=== PATIENT | female | born 1935 | race Caucasian/White ===

== ENCOUNTER → 2016-09-07 | Outpatient (CLI) | payer MEDICARE ==
[~2016-09-07] MED LIST: CIPR500T2 PO; LOSA50TA PO; METO50TA PO
[2016-09-07 13:14] LABS: BACTERIA, URINE OCC /hpf; BLOOD, URINE TRACE (NEG); COMMENT (UR) CULTURE INDICATED; CULTURE IF INDICATED CULTURE INDICATED; GLUCOSE,URINE NEG (NEG); HYALINE CAST, URINE 7 /lpf (RARE); KETONE, URINE NEG (NEG); NITRITE,URINE NEG (NEG); SQUAMOUS EPITHELIAL CELL URINE 7 /hpf (0-5); URINE COLOR YELLOW (YELLW/STRAW)
[2016-09-07 13:21] LABS: ANION GAP 10 MEQ/L (5-15); AST (GOT) 15 U/L (15-37); BICARBONATE 20.3 MEQ/L (21.0-32.0); BLOOD UREA NITROGEN 18 MG/DL (7-18); CHLORIDE 101 MEQ/L (98-107); GLOMERULAR FILTRATION RATE 32 ML/MIN (>89); GLUCOSE,FASTING 81 MG/DL (74-99); POTASSIUM 4.2 MEQ/L (3.5-5.1); SODIUM (NA) 131 MEQ/L (136-145)
[2016-09-07 13:23] LABS: ALKALINE PHOSPHATASE 72 U/L (45-117); ALT (GPT) 18 U/L (10-53); TOTAL BILIRUBIN ADULT 0.2 MG/DL (0.2-1.0)
[2016-09-07 13:30] LABS: AUTOMATED NEUTROPHIL # 4.6 TH/MM3 (1.8-7.7); BASOPHIL % 0.4 % (0.0-2.0); EOSINOPHIL # 0.1 TH/MM3 (0-0.4); EOSINOPHIL % 1.7 % (0.0-4.0); HEMATOCRIT 29.8 % (35.0-46.0); HEMO FLAGS DIFF FINAL; LYMPH % 20.8 % (9.0-44.0); LYMPHOCYTE # 1.4 TH/MM3 (1.0-4.8); MEAN CELL VOLUME 89.7 FL (80.0-100.0); MEAN CORPUSCULAR HEMOGLOBIN 30.7 PG (27.0-34.0); MEAN CORPUSCULAR HGB CONC 34.3 % (32.0-36.0); MONO % 8.6 % (0.0-8.0); NEUT % 68.5 % (16.0-70.0); PLATELET COUNT 400 TH/MM3 (150-450); RED BLOOD COUNT 3.32 MIL/MM3 (4.00-5.30); WHITE BLOOD COUNT 6.7 TH/MM3 (4.0-11.0)
--- NOTE | 2016-09-07 18:15 | EKG ---
Date Performed: 09/07/2016 Time Performed: 12:16:10 PTAGE: 81 years EKG: SINUS BRADYCARDIA First degree AV block BORDERLINE ECG NO PREVIOUS TRACING DOCTOR: Maxx Zafar Interpretating Date/Time 09/07/2016 18:14:31
== END ==
LOC: CPRE 11:56
PROVIDERS: ATTEND Obstetrics & Gynecology Gynecology
DX: Z01.810 Encounter for preprocedural cardiovascular examination (principal); Z01.812 Encounter for preprocedural laboratory examination; N81.10 Cystocele, unspecified; R94.31 Abnormal electrocardiogram [ECG] [EKG]
CPT/HCPCS: 36415; 80053; 81001; 85025; 87086; 93005

== ENCOUNTER → 2016-09-13 | Day surgery (SDC) | payer MEDICARE ==
--- NOTE | 2016-09-07 12:34 | MH ---
cc: SID RUBIO MD DATE OF ADMISSION: 09/13/2016 DATE OF 1935 REASON FOR ADMISSION For anterior and posterior repair. ADMITTING DIAGNOSES Pelvic prolapse. Urinary retention. HISTORY OF PRESENT ILLNESS The patient is an 81-year-old white female, 5, para 4, status post total abdominal hysterectomy 50 years ago who has issues with pelvic organ prolapse and urinary retention. She has tried a pessary with limited result. She wants to proceed with surgical repair. PAST MEDICAL HISTORY The patient's medical history is notable for hypertension. Negative for heart, lung, liver disease, diabetes or stroke. MEDICATIONS 1. Losartan 50 mg daily. 2. Metoprolol 50 mg daily. ALLERGIES BACTRIM. CODEINE. DEMEROL. MORPHINE. PENICILLIN. SULFA. OB HISTORY Four vaginal deliveries. [employer] HISTORY Hysterectomy for benign condition. Also SURGICAL HISTORY Appendectomy. Cholecystectomy. FAMILY HISTORY Noncontributory. SOCIAL HISTORY Has good social support. No alcohol, tobacco or drugs. REVIEW OF SYSTEMS As above. No chest pain, orthopnea, PND. No nausea, vomiting or chills. No vaginal bleeding or discharge. Her major issues are pelvic pressure and urinary retention. PHYSICAL EXAMINATION VITAL SIGNS: On exam she is afebrile. Vital signs are stable. Blood pressure is 120/70. Height 5 feet, weight is 130, BMI is 25.4. GENERAL: The patient is alert and oriented, in no acute distress. No sign of cognitive dysfunction or depression. HEENT: Within normal limits. NECK: Supple. No JVD. CHEST: Clear. HEART: Regular rate and rhythm. ABDOMEN: Soft, nontender. No hepatosplenomegaly. No CVA tenderness. PELVIC EXAM: Will be detailed under anesthesia in the office we note Aa is +1, Point C is -6, Ap is 0. Genital hiatus is 3. Perineal body is 4. Total vaginal length is 10. Postvoid residual was 350 cc. Levator muscle strength is decreased at 2/5. Further exam under anesthesia. EXTREMITIES: Normal. SKIN: Without rashes. NEURO EXAM: Nonfocal. No DVT signs. ASSESSMENT Patient with anterior and posterior compartment defect with urinary retention. The patient and I have discussed the options of management and treatment. She has already failed conservative measures and understands the risks, benefits and alternatives of the planned procedure. She understands the issues of possible failure of repair, failure to resolve retention issues with dyspareunia, de valarie incontinence, damage to surrounding organs, bleeding and infection. She has made informed choice to proceed. PLAN At this point we anticipate outpatient procedure. We will use DVT prophylaxis with sequential compression device and antibiotic prophylaxis with Cleocin 900 mg IV and Flagyl 500 mg IV in light of her allergies. MD MINDI Downs/JOSS /11:37 AM /12:03 PM
[~2016-09-13] VITALS: Ht 152.4 cm; Wt 58.4 kg
[~2016-09-13] MED LIST changes: +CHLORHEXIDINE GLUCONATE 2 % 1 PACK (2 CLOTHS) TOPICAL PRN; -CIPR500T2 PO; +CLINDAMYCIN INJ 900 MG in SODIUM CHLORIDE 0.9% INJ 100 ML IV SCH; +DO NOT ADM ANY ANTICOAGULANT DRUGS PRN; +FLUORESCEIN SOD 10% SOLN 500 MG/5 ML AMP IV ONE; +INSULIN HUMAN REGULAR 1,000 UNITS/10 ML VIAL SQ PRN; +KETOROLAC TROMETHAMINE 30 MG/ML (IVP) VIAL IV PUSH PRN; +LACTATED RINGER'S 1000 ML IV PRN; +LIDOCAINE 1%/EPINEPHrine 1:100,000 SOLN 30 ML VIAL INFIL ONE; +METHYLENE BLUE 10 MG/ML VIAL OTHER ONE; +METOPROLOL TARTRATE 25 MG TAB PO PRN; +METRONIDAZOLE 500 MG/100 ML ISONTONIC SOLN IV SCH; +ONDANSETRON HCL 4 MG/2 ML VIAL IV PUSH ONE; +ONDANSETRON HCL 4 MG/2 ML VIAL IV PUSH PRN; +POVIDONE IODINE 5% (ANTISEPSIS KIT) 4 APPLICATIONS EACH NARE PRN; +PROPOFOL 200 MG/20 ML AMP IV ONE; +SODIUM CHLORID 0.9% 500 ML IV PRN; +SODIUM CHLORIDE 0.9% INJ 100 ML ONE; +traMADol HCL 50 MG TAB PO PRN
[2016-09-13 07:05] VITALS: BP 141/73; PULSE 55; RESP 18; TEMP 98.5; O2SAT 97
[2016-09-13 12:01] VITALS: BP 151/64; PULSE 57; RESP 18; TEMP 98; O2SAT 100
--- NOTE | 2016-09-14 07:18 | MP ---
cc: SID RUBIO MD DATE OF SURGERY 09/13/2016 PREOPERATIVE DIAGNOSES 1. Pelvic organ prolapse. 2. Urinary retention. POSTOPERATIVE DIAGNOSES 1. Stage II midline cystocele. 2. Stage II rectocele. 3. Apical prolapse Stage II. 4. Urinary retention. PROCEDURE 1. Anterior and posterior repair with enterocele. 2. Extraperitoneal colposuspension. 3. Diagnostic cystoscopy coupled with the diagnosis of urinary retention. SURGEON Dr. Rubio ANESTHESIA General endotracheal. [employer] [place] staff x 2. FLUIDS 1000 cc crystalloid. BLOOD LOSS 20 cc. URINE OUTPUT 350 cc prior to case. FINDINGS External genitalia poorly estrogenized. POP-Q score: Aa is 0, Ap is 0. Point C is -2. Total vaginal length is 10. Genital hiatus is 6. Perineal body is 5. Following repair, Aa is -3, Ap is -3. Point C is -8. Total vaginal length is 8. Genital hiatus is 4. Perineal body is 5. Cystoscopy shows normal trigone, some mild trigonitis, nothing suspicious. No frond-like lesions or ulcerations, nothing to explain the issue with urinary retention except the cystocele. No sign of obstruction of the urethra or diverticula. Rectal exam normal following repair. SPECIMENS Mucosa was trimmed but not sent. COMPLICATIONS None. DISPOSITION Recover stable. COUNTS Needle, sponge and instrument counts correct. DRAINS Huerta catheter. DISPOSITION To the recovery room stable. ANTIBIOTIC PROPHYLAXIS Cleocin and Flagyl. DVT PROPHYLAXIS Sequential compression device. Time-out procedure per protocol SUMMARY OF INDICATIONS AND PROCEDURE The patient was symptomatic with pelvic organ prolapse and urinary retention with a postvoid residual to 350 cc. Chronically infected urine. The patient was taken to the operating room theatre, identified, prepped and draped in a fashion appropriate for the planned procedure. She was in dorsal lithotomy position with careful attention paid to placement of the in the stirrups to avoid undue stress to sensitive neurovascular structures. Above findings were noted, neurovascular integrity documented. A Huerta catheter was placed. Methylene blue was instilled into the vagina. The apex of the vagina had more prolapse than we had appreciated in the office. We grasped the apex with Allis clamps, infiltrated the vaginal mucosa anteriorly with epinephrine-lidocaine solution, made a midline incision from the apex to approximate 1 cm from the urethral meatus. We reflected the bladder from the mucosa with no spilled methylene blue. The anterior colporrhaphy was performed in standard fashion with delayed absorbable suture. Cystoscopy was performed using a 17-Palestinian bridge, a 70-degree scope, the above findings noted. The patient received IV fluorescein 1 cc. Ureteral orifices were patent x 2. Dome and base of bladder was normal except for some mild trigonitis. No ulcerations, lesions or frond-like structures. The vaginal cuff was trimmed, the mucosa was closed with a running 2-0 Vicryl suture. Hemostasis was good. Posterior compartments and apex were still an issue. We infiltrated the hymenal ring with epinephrine-lidocaine solution, made a midline incision after grasping the remnants with an Allis clamp, took the midline incision to approximately 1 cm from the apex, reflected the rectum from the vaginal mucosa, encountered enterocele. This was closed with delayed absorbable suture and also affixed the paravaginal fascia to the pubocervical ring that was still present to give support of the apex. A small amount of vaginal mucosa was trimmed. Hemostatic matrix was used for added reassurance of hemostasis. The vaginal cuff was closed with a running Vicryl suture. Rectal exam confirmed there was no damage to the rectum. At the conclusion of the procedure, suture lines intact and hemostatic. The pop Q score was as noted above, had significant improvement in the anterior, posterior and apical compartments. Suspect that the urinary retention was related to the significant anterior compartment prolapse. The patient was reversed from anesthesia and taken to Recovery in stable condition. MD MINDI Downs/JOSS /9:29 AM /7:08 AM
== END | disposition home or self-care (01) ==
LOC: HSDC 05:55
PROVIDERS: ATTEND Obstetrics & Gynecology Gynecology
DX: N99.3 Prolapse of vaginal vault after hysterectomy (principal); R33.9 Retention of urine, unspecified; I10 Essential (primary) hypertension
CPT/HCPCS: 00840; 52000; 57265; 57282; J2405; J3010; J7120